=== PATIENT | female | born 2000 | race African-American/Black ===

== ENCOUNTER → 2020-10-02 | Outpatient (CLI) | payer OTHER ==
--- NOTE | 2020-10-02 13:54 | REP ---
INDICATION: PAIN IN LEFT FOOT. COMPARISON: None. TECHNIQUE: Axial CT left foot, sagittal and coronal reconstruction images. FINDINGS: There is no evidence of acute fracture or dislocation. There is fusion of the distal tibia and fibula with the talus. Multiple tiny metallic densities are seen in the soft tissues in the region of this fusion. Small smoothly marginated 5 mm calcification is seen in the soft tissues laterally at this level. An oval somewhat lobulated calcification is seen in the medial soft tissues at this level measuring approximately 14 x 6 mm. The osseous structures are diffusely osteopenic. There appears to be soft tissue scarring at the level of the fusion. IMPRESSION: No acute fracture or dislocation. Surgical fusion distal tibia and fibula with talus. <Electronically signed by Chapo Lucas > 10/02/20 [id number]
== END ==
LOC: M RAD 12:51
PROVIDERS: ATTEND Physician Assistant Surgical
DX: M79.672 Pain in left foot (principal); Z98.1 Arthrodesis status

== ENCOUNTER 2021-04-28 13:37 | Emergency (ER) | payer OTHER ==
[~2021-04-28] VITALS: Ht 160 cm; Wt 77.6 kg
[2021-04-28 13:39] VITALS: BP 127/70
== END 2021-04-28 15:12 | disposition left against medical advice (07) ==
LOC: M ED 13:37
DX: Z53.21 Procedure and treatment not carried out due to patient leaving prior to being seen by health care provider (principal)

== ENCOUNTER 2021-04-28 17:48 | Emergency (ER) | payer OTHER ==
[2021-04-28 17:49] VITALS: BP 127/70
== END 2021-04-28 19:30 | disposition left against medical advice (07) ==
LOC: M ED 17:48
DX: Z53.21 Procedure and treatment not carried out due to patient leaving prior to being seen by health care provider (principal)

== ENCOUNTER → 2022-09-01 | Outpatient (REF) | payer OTHER ==
[2022-09-01 17:42] LABS: ALBUMIN 4.1 G/DL (3.2-5.2); ALKALINE PHOSPHATASE 49 U/L (46-116); ALT/SGPT 13 U/L (7.0-40); AST/SGOT 16 U/L (<34); BILIRUBIN,TOTAL 0.2 MG/DL (0.3-1.2); BLOOD UREA NITROGEN 16 MG/DL (9-23); CALCIUM LEVEL 9.1 MG/DL (8.5-10.1); CARBON DIOXIDE LEVEL 29 MMOL/L (20-31); CHLORIDE LEVEL 104 MMOL/L (98-107); CHOLESTEROL LEVEL 168 MG/DL (<200); CHOLESTEROL RISK RATIO 3.35 (<5); CREATININE FOR GFR 0.71 MG/DL (0.55-1.30); GLOMERULAR FILTRATION RATE > 60.0 (>60); GLUCOSE, FASTING 70 MG/DL (60-100); HDL CHOLESTEROL 50.1 MG/DL (>40); LDL CHOLESTEROL 105.1 MG/DL (<100); NON-HDL-C 118 MG/DL; POTASSIUM SERUM 4.4 MMOL/L (3.5-5.1); SODIUM LEVEL 138 MMOL/L (136-145); TOTAL PROTEIN 7.1 G/DL (5.7-8.2); TRIGLYCERIDES LEVEL 64 MG/DL (<150)
[2022-09-01 17:45] LABS: HEMOGLOBIN A1c 5.7 % (4.0-6.0)
[2022-09-01 17:46] LABS: THYROID STIMULATING HORMONE 0.314 uIU/ML (0.55-4.78)
[2022-09-01 17:48] LABS: TOTAL 25(OH) VITAMIN D 25.4 NG/ML (20.0-100.0)
[2022-09-01 18:14] LABS: HIV 1&2 SCREEN CENTAUR NEGATIVE (NEGATIVE)
== END ==
LOC: M LAB REF 16:35
PROVIDERS: ATTEND Nurse Practitioner Family
DX: E66.3 Overweight (principal); Z11.9 Encounter for screening for infectious and parasitic diseases, unspecified

== ENCOUNTER → 2022-11-04 | Outpatient (REF) | payer OTHER ==
[2022-11-04 18:26] LABS: GC DNA AMPLIFICATION NEGATIVE (NEGATIVE)
== END ==
LOC: M LAB REF 16:23
PROVIDERS: ATTEND Physician Assistant
DX: Z11.3 Encounter for screening for infections with a predominantly sexual mode of transmission (principal); Z87.42 Personal history of other diseases of the female genital tract; N89.8 Other specified noninflammatory disorders of vagina

== ENCOUNTER → 2023-01-06 | Outpatient (REF) | payer OTHER ==
[2023-01-06 16:53] LABS: BASO % 0.4 % (0.0-1.0); EOS # 0.1 10^3/uL (0.0-0.5); EOS % 1.3 % (0.0-3.0); HEMATOCRIT 38.7 % (36.0-47.0); HEMOGLOBIN 12.7 g/dl (12.0-15.5); LYMPH # 2.7 10^3/uL (1.5-5.0); LYMPH % 58.7 % (24.0-44.0); MEAN CORPUSCULAR HEMOGLOBIN 29.5 pg (27.0-33.0); MEAN CORPUSCULAR HGB CONC 32.8 g/dl (32.0-36.5); MEAN CORPUSCULAR VOLUME 89.8 fl (80.0-96.0); MONO # 0.3 10^3/uL (0.0-0.8); MONO % 6.6 % (2.0-8.0); NEUTROPHILS # 1.5 10^3/uL (1.5-8.5); NEUTROPHILS % 32.8 % (36.0-66.0); PLATELET COUNT, AUTOMATED 249 10^3/uL (150-450); RED BLOOD COUNT 4.31 10^6/uL (4.00-5.40); WHITE BLOOD COUNT 4.7 10^3/uL (4.0-10.0)
[2023-01-06 17:01] LABS: PERCENT SATURATION 21.5 % (13.2-45.0)
[2023-01-06 17:04] LABS: THYROID STIMULATING HORMONE 0.608 uIU/ML (0.55-4.78)
[2023-01-06 17:16] LABS: FERRITIN 27.9 NG/ML (7.3-270.7)
== END ==
LOC: M LAB REF 16:16
PROVIDERS: ATTEND Physician Assistant
DX: Z86.2 Personal history of diseases of the blood and blood-forming organs and certain disorders involving the immune mechanism (principal); R53.83 Other fatigue; R68.89 Other general symptoms and signs; N92.0 Excessive and frequent menstruation with regular cycle; R89.1 Abnormal level of hormones in specimens from other organs, systems and tissues; E05.90 Thyrotoxicosis, unspecified without thyrotoxic crisis or storm

== ENCOUNTER → 2023-08-22 | Outpatient (REF) | payer SELFPAY ==
[2023-08-22 17:30] LABS: BLOOD UREA NITROGEN 9 MG/DL (9-23); CARBON DIOXIDE LEVEL 27 MMOL/L (20-31); CHLORIDE LEVEL 107 MMOL/L (98-107); CHOLESTEROL LEVEL 139 MG/DL (<200); CHOLESTEROL RISK RATIO 2.32 (<5); CREATININE FOR GFR 0.61 MG/DL (0.55-1.30); GLOMERULAR FILTRATION RATE > 60.0 (>60); GLUCOSE, FASTING 94 MG/DL (60-100); HDL CHOLESTEROL 59.9 MG/DL (>40); LDL CHOLESTEROL 65.3 MG/DL (<100); NON-HDL-C 79.1 MG/DL; POTASSIUM SERUM 4.3 MMOL/L (3.5-5.1); SODIUM LEVEL 139 MMOL/L (136-145); TRIGLYCERIDES LEVEL 69 MG/DL (<150)
[2023-08-22 17:31] LABS: THYROID STIMULATING HORMONE 0.333 uIU/ML (0.55-4.78)
[2023-08-22 17:59] LABS: BASO % 0.4 % (0.0-1.0); EOS % 0.7 % (0.0-3.0); HEMOGLOBIN 13.1 g/dl (12.0-15.5); LYMPH # 2.2 10^3/uL (1.5-5.0); LYMPH % 39.9 % (24.0-44.0); MEAN CORPUSCULAR HEMOGLOBIN 30.1 pg (27.0-33.0); MEAN CORPUSCULAR HGB CONC 32.8 g/dl (32.0-36.5); MONO # 0.4 10^3/uL (0.0-0.8); MONO % 7.6 % (2.0-8.0); NEUTROPHILS # 2.8 10^3/uL (1.5-8.5); PLATELET COUNT, AUTOMATED 202 10^3/uL (150-450); RED BLOOD COUNT 4.35 10^6/uL (4.00-5.40); WHITE BLOOD COUNT 5.5 10^3/uL (4.0-10.0)
[2023-08-22 18:56] LABS: Trichomonas vaginalis (AMP) NOT DETECTED (NEGATIVE)
[2023-08-22 19:10] LABS: HEMOGLOBIN A1c 5.2 % (4.0-6.0)
== END ==
LOC: M LAB REF 16:11
PROVIDERS: ATTEND Nurse Practitioner Family
DX: Z11.9 Encounter for screening for infectious and parasitic diseases, unspecified (principal); E78.5 Hyperlipidemia, unspecified; R73.03 Prediabetes; R53.83 Other fatigue